=== PATIENT | female | born 1970 | race Caucasian/White ===

== ENCOUNTER → 2016-11-03 | Emergency (ER) | payer OTHER ==
[~2016-11-03] MED LIST: ONDANSETRON DISINTEGRATING 4 MG TAB ONE; ONDANSETRON DISINTEGRATING 4 MG TAB PO ONE; OSELTAMIVIR PHOSPHATE 75 MG CAP PO ONE
[2016-11-03 11:37] VITALS: BP 109/81; PULSE 109; RESP 16; TEMP 99.2; O2SAT 95
--- NOTE | 2016-11-03 12:04 | UCPHY ---
H & P Patient Type: New Chief Complaint Nursing Narrative: Pt. states yesterday aprox 1400 started with cough, then s/s's increased to bodyaches,fever and chills. Cough productive yellow mucous. Time Seen by Provider: 11/03/16 11:55 HPI/ROS: CHIEF COMPLAINT: Body aches, cough HISTORY OF PRESENT ILLNESS: Patient is a 46-year-old female who comes to the Urgent Care complaining body aches and a cough that began yesterday evening around 2:00 p.m. she did have a flu vaccination this year. Mild sore throat , no rashes. No significant past medical history REVIEW OF SYSTEMS: Constitutional: denies: chills, fever, recent illness, recent injury EENTM: See HPI Respiratory: denies: cough, shortness of breath Cardiac: denies: chest pain, irregular heart rate, lightheadedness, palpitations Gastrointestinal/Abdominal: denies: abdominal pain, diarrhea, nausea, vomiting, blood streaked stools Genitourinary: denies: dysuria, frequency, hematuria, pain Musculoskeletal: denies: joint pain, muscle pain Skin: denies: lesions, rash, jaundice, bruising Neurological: denies: headache, numbness, paresthesia, tingling, dizziness, weakness Hematologic/Lymphatic: denies: blood clots, easy bleeding, easy bruising Immunologic/allergic: denies: HIV/AIDS, transplant EXAM: GENERAL: Well-appearing, cold HEAD: Atraumatic, normocephalic. EYES: Pupils equal round and reactive to light, extraocular movements intact, sclera anicteric, conjunctiva are normal. ENT: TMs normal, nares patent, oropharynx clear without exudates. Moist mucous membranes. NECK: Normal range of motion, supple without lymphadenopathy or JVD. LUNGS: Breath sounds clear to auscultation bilaterally and equal. No wheezes rales or rhonchi. HEART: Regular rate and rhythm without murmurs, rubs or gallops. ABDOMEN: Soft, nontender, normoactive bowel sounds. No guarding, no rebound. No masses appreciated. BACK: No CVA tenderness, no spinal tenderness, step-offs or deformities EXTREMITIES: Normal range of motion, no pitting or edema. No clubbing or cyanosis. NEUROLOGICAL: Cranial nerves II through XII grossly intact. Normal speech, normal gait. 5/5 strength, normal movement in all extremities, normal sensation PSYCH: Normal mood, normal affect. SKIN: Warm, dry, normal turgor, no visible rashes or lesions. Source: Patient, Family - Personal History LMP (Females 10-55): 8-14 Days Ago - Medical/Surgical History Hx Asthma: No Hx Chronic Respiratory Disease: No Hx Diabetes: No Hx Cardiac Disease: No Hx Renal Disease: No Hx Cirrhosis: No Hx Alcoholism: No Hx HIV/AIDS: No Hx Splenectomy or Spleen Trauma: No Other PMH: med hx-kidney stones. surg-none - Family History Significant Family History: No pertinent family hx - Social History Smoking Status: Unknown if ever smoked Alcohol Use: Sober Drug Use: None Constitutional: Initial Vital Signs Temperature (C) 37.3 C 11/03/16 11:15 Heart Rate 109 H 11/03/16 11:15 Respiratory Rate 16 11/03/16 11:15 Blood Pressure 109/81 H 11/03/16 11:15 O2 Sat (%) 95 11/03/16 11:15 O2 Delivery Mode Room Air Allergies/Adverse Reactions: No Known Allergies Allergy (Verified 11/03/16 11:33) Home Medications: Medication Instructions Recorded Ondansetron Odt [Zofran Odt 4 mg 4 mg PO Q4 PRN #20 tab 11/03/16 (RX)] Oseltamivir Phosphate [Tamiflu 75 75 mg PO BID #10 cap 11/03/16 mg (*)] Medical Decision Making ED Course/Re-evaluation: Patient's flu swab is positive. I will start her on Tamiflu. is asking how to resist contagiousness. I will also prescribe her Zofran if needed. She and her family understand agree with this plan and declines further workup or testing at this time. Differential Diagnosis: Partial list of the Differential diagnosis considered include but were not limited to; influenza, viral syndrome, strep throat and although unlikely based on the history and physical exam, I also considered pneumonia, sinusitis, bacteremia. I discussed these differential diagnoses and the plan with the patient as well as the usual and expected course. The patient understands that the diagnosis is provisional and that in medicine we are not always correct and that further workup is often warranted. Usual and customary warnings were given. All of the patient's questions were answered. The patient was instructed to return to the emergency department should the symptoms at all worsen or return, otherwise to followup with the physician as we discussed. - Data Points Laboratory Results: 11/03/16 11:30 Influenza Typ A,B (DFA) POSITIVE FOR FLU A H (NEGATIVE) Medications Given: Discontinued Medications Ondansetron HCl (Zofran Odt) 4 mg PO EDNOW ONE Stop: 11/03/16 12:22 Last Admin: 11/03/16 12:21 Dose: 4 mg Oseltamivir Phosphate (Tamiflu) 75 mg PO EDNOW ONE Stop: 11/03/16 11:57 Last Admin: 11/03/16 12:19 Dose: 75 mg Departure - Departure Clinical Impression: Influenza A Condition: Fair Instructions: Influenza (ED), Oseltamivir (By mouth) Referrals: NONE *PRIMARY CARE P,. [Primary Care Provider] - As per Instructions Prescriptions: Oseltamivir Phosphate [Tamiflu 75 mg (*)] 75 mg PO BID #10 cap Ondansetron Odt [Zofran Odt 4 mg (RX)] 4 mg PO Q4 PRN #20 tab PRN Reason: Nausea & Vomiting - PQRS PQRS Measurement: Not applicable
== END | disposition home or self-care (01) ==
LOC: CED 10:57
DX: J10.1 Influenza due to other identified influenza virus with other respiratory manifestations (principal)
CPT/HCPCS: 87400-PO; 99204-PO; G0463-PO

== ENCOUNTER → 2017-03-06 | Outpatient (CLI) | payer OTHER | LOC: FIMAGING 14:44 | PROVIDERS: ATTEND Internal Medicine | DX: Z12.31 Encounter for screening mammogram for malignant neoplasm of breast (principal) | CPT/HCPCS: G0202 ==

== ENCOUNTER → 2018-08-09 | Outpatient (CLI) | payer OTHER | LOC: FLAB 10:10 | PROVIDERS: ATTEND Internal Medicine | DX: R05 Cough (principal) ==